=== PATIENT | male | born 1935 | race Caucasian/White ===

== ENCOUNTER 2020-12-26 11:17 | Emergency (ER) | payer OTHER, SELFPAY ==
[2020-12-26] VITALS (9 sets, daily range): BP systolic 140–165; BP diastolic 69–88; PULSE 77–93; RESP 18–22; TEMP 36.3–36.7; O2SAT 98–100
--- NOTE | ~2020-12-26 | XR_ITS ---
EXAMINATION: XR chest 2V DATE: 12/26/2020 12:37 INDICATION: Syncope. TECHNIQUE: Frontal and lateral views of the chest were obtained. COMPARISON: CT thoracic spine 02/01/2011 FINDINGS: There is elevation of left hemidiaphragm. A calcified right lung nodule is consistent with old granulomatous disease. There is mild atelectasis at the lung bases. No pleural effusion or pneumo thorax. The heart size is normal. Surgical clips overlying left upper chest. IMPRESSION: 1. Elevation of left hemidiaphragm, new from 02/01/2011. 2. Mild atelectasis at the lung bases. Reviewed, dictated and finalized at location A.
--- NOTE | ~2020-12-26 | CT_ITS ---
EXAMINATION: CT brain wo con DATE: 12/26/2020 12:57 INDICATION: Syncope. TECHNIQUE: Computed tomography (CT) of the head was performed without intravenous contrast. The mA wa s adjusted according to patient size. Iterative reconstruction technique was employed. The dose-lengt h product was 681.00 mGy-cm. COMPARISON: None FINDINGS: There are scattered areas of low attenuation in the cerebral white matter. There is no intr acranial hemorrhage, acute infarction, or abnormal intracranial mass lesion. The ventricles are smita l in size. There are likely changes of ocular lens replacement surgeries. There is mild mucosal thick ening in the paranasal sinuses. The mastoid air cells are normal. IMPRESSION: 1. Mild nonspecific cerebral white matter disease, which likely represents chronic small vessel ische rosemary disease. Reviewed, dictated and finalized at location A. IMPRESSION: 1. Mild nonspecific cerebral white matter disease, which likely represents body shop estimator leilani small vessel ischemic disease.
--- NOTE | ~2020-12-26 | CT_ITS ---
EXAMINATION: CTA chest PE protocol DATE: 12/26/2020 14:43 CDT INDICATION: Syncope. Elevated d-dimer. TECHNIQUE: Computed tomographic angiography (CTA) of the chest was performed with 100 mL Omnipaque-35 0 intravenous contrast. The dose-length product was 573.43 mGy-cm. Maximum intensity projection 3D-re constructions of the aorta and other arteries were constructed by the technologist on a separate work station. Automated exposure control and iterative reconstruction technique were employed. COMPARISON: Chest x-ray dated 12/26/2020. FINDINGS: Study is technically adequate without evidence for pulmonary embolism. No significant pleur al or pericardial effusion. Cardiomegaly. No evidence for aortic aneurysm or dissection. There is cor onary atherosclerosis. Mild mediastinal lymphadenopathy, likely reactive. Bibasilar dependent atelect asis. There is peripheral interlobular septal thickening with a few scattered subpleural nodules tyson uring 2 mm or less. No endobronchial lesions. IMPRESSION: 1. No evidence for pulmonary embolism. 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 3: Mild mediastinal lymphadenopathy, likely reactive. Reviewed, dictated and finalized at location A.
--- NOTE | 2020-12-26 12:02 | ECG_ITS ---
Measurements Intervals [place] Rate: 84 P: 35 MO: 213 QRS: -6 QRSD: 112 T: 30 QT: 371 QTc: 439 Interpretive Statements SINUS RHYTHM WITH FIRST DEGREE AV BLOCK MINIMAL Q WAVES- ANTEROLATERAL LEADS CONSIDER INFERIOR INFARCT, AGE INDETERMINATE BASELINE WANDER- AVF ABNORMAL ECG Electronically Signed On 12-26-2020 19:44:54 CDT by Zuhair Cao D.O.
--- NOTE | 2020-12-26 13:22 | ED.SYNCOPE ---
HPI - Syncope General Chief Complaint: Syncope Stated Complaint: syncope Time Seen by Provider: 12/26/20 12:11 Source: patient Mode of arrival: ambulatory Limitations: no limitations History of Present Illness HPI narrative: Patient is an 85-year-old male brought in by EMS after a syncopal episode while in latter day today. According to the patient was sitting down, and possibly passed out for a few seconds and vomited x1. states that she does not think he passed out, more of near syncope. Upon arrival patient is alert awake and oriented and has no complaints at this time. Patient states that he feels back to normal. Patient denies any headache, dizziness, speech or visual disturbance, focal weakness or numbness, chest pain, shortness of breath, abdominal pain, nausea, vomiting, fever or chills. 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 Related Data Home Medications Medication Instructions Recorded Confirmed amlodipine 12/26/20 clopidogrel 12/26/20 finasteride mg 12/26/20 fosinopril 12/26/20 hydrochlorothiazide 12/26/20 lansoprazole 12/26/20 levothyroxine 12/26/20 simvastatin mg 12/26/20 tramadol mg 12/26/20 12/26/20 Allergies Allergy/AdvReac Type Severity Reaction Status Date / Time No Known Allergies Allergy Unknown Verified 12/26/20 15:11 Review of Systems Review of Systems: All systems reviewed & are unremarkable except as noted in HPI and below Constitutional: Constitutional: Denies body ache(s), Denies chills, Denies excessive sweating, Denies fatigue, Denies fever(s), Denies headache(s), Denies lethargy, Denies malaise, Denies weakness and Denies weight loss Eyes: Eyes: Denies blurry vision, Denies change in vision and Denies loss of vision ENT: Denies dizziness, Denies ear discharge, Denies headache(s), Denies lip swelling, Denies epistaxis, Denies nasal congestion, Denies neck pain, Denies throat swelling and Denies tongue swelling Cardiovascular: Cardiovascular: Denies chest pain, Denies chest pain at rest, Denies chest pain with activity, Denies diaphoresis, Denies rapid heart rate, Denies edema, Denies irregular heart rhythm, Denies lightheadedness, Denies palpitations, Denies dyspnea and Denies dyspnea on exertion Respiratory: Respiratory: Denies chest congestion, Denies cough, Denies hemoptysis, Denies dyspnea and Denies dyspnea on exertion Gastrointestinal: Gastrointestinal: Denies abdominal pain, Denies melena, Denies hematochezia, Denies diarrhea and Denies hematemesis Musculoskeletal: Musculoskeletal: Denies abnormal gait, Denies deformity, Denies joint swelling, Denies limited range of motion, Denies neck pain and Denies numbness Neurologic: Denies Abnormal speech present, Denies abnormal gait, Denies confusion, Denies dizziness, Denies headache(s), Denies focal weakness, Denies loss of vision, Denies numbness, Denies Other visual disturbances, Denies Sensory deficit (Neuro) and Denies weakness Psychiatric: Psychiatric: Denies confusion, Denies depression, Denies auditory hallucinations, Denies homicidal ideation and Denies suicidal ideation Endocrine: Endocrine: Denies cold intolerance, Denies excessive sweating, Denies fatigue, Denies heat intolerance and Denies palpitations Hematologic/Lymphatic: Hematologic/Lymphatic: Denies easy bleeding and Denies easy bruising Allergic/Immunologic: Allergic/Immunologic: Denies lip swelling, Denies throat swelling and Denies tongue swelling PMFSH Family History Family History Sibling Patient's sister is in good health Family history of malignant neoplasm Family history of heart disease in male family member before age 55 Patient's sister is Patient's brother is Father Family history of malignant neoplasm Patient's father
[2020-12-26 13:38] LABS: Basophils Percent Auto 0.6 % (0.2-1.2); Eosinophils Absolute Auto 0.1 K/mm3 (0-0.3); Hematocrit 27.8 % (42.0-52.0); Immature Granulocyte Absolute 0.02 K/mm3 (0.00-0.031); Immature Granulocyte Percent A 0.3 % (0-0.5); Lymphocytes Absolute Auto 0.85 K/mm3 (0.9-3.2); Mean Corpuscular Hemoglobin 30.5 pg (26-34); Mean Corpuscular Volume 84.8 fl (80-100); Mean Platelet Volume 9.9 fl (7.4-10.4); Monocytes Absolute Auto 0.6 K/mm3 (0.1-0.6); Monocytes Percent Auto 8.5 % (2.6-8.5); Neutrophils Absolute Auto 5.5 K/mm3 (1.3-6.7); Neutrophils Percent Auto 77.6 % (45.5-73.1); Platelet Count Result 227 k/mm3 (150-375); Red Blood Count 3.28 M/mm3 (4.6-6.20); Red Cell Distribution Width 12.2 % (11.5-14.5); White Blood Count 7.1 K/mm3 (4.5-10.0)
[2020-12-26 13:51] LABS: Alanine Aminotransferase 15 U/L (4-50); Albumin Level 4.2 g/dL (3.5-5.1); Alkaline Phosphatase 88 U/L (38-126); Anion Gap 11 mmol/L (8-16); Aspartate Amino Transferase 21 U/L (17-59); Bilirubin,Total 0.4 mg/dL (0.2-1.3); Blood Urea Nitrogen 15 mg/dL (9-20); Calcium 9.7 mg/dL (8.4-10.2); Carbon Dioxide 27 mmol/L (22-30); Chloride 94 mmol/L (98-107); Estimated CRCL calculation 50 ml/min; Estimated Glomerular Filt Rate > 60; Glucose 139 mg/dL (75-110); Sodium 132 mmol/L (137-145)
[2020-12-26 14:00] LABS: Glucose Point of Care 129 mg/dl (65-105)
[2020-12-26 14:06] LABS: Prothrombin Time 13.3 Seconds (11.1-14.7)
[2020-12-26 14:09] LABS: Partial Thromboplastin Time 27.2 SECONDS (22.3-36.8)
[2020-12-26 14:14] LABS: D Dimer 0.86 ug/mL (<0.48)
[2020-12-26] MEDS: LACTATED RINGERS 1,000 ML 999 ML IV CONT (15:07)
== END 2020-12-26 16:55 | disposition home or self-care (01) ==
PROVIDERS: Physician Assistant; Emergency Provider Emergency Medicine; PCP Internal Medicine
DX: R55 Syncope and collapse (principal); Z95.5 Presence of coronary angioplasty implant and graft; I44.0 Atrioventricular block, first degree; R94.31 Abnormal electrocardiogram [ECG] [EKG]
CPT/HCPCS: 36415; 70450; 71046; 71275; 80053; 82948; 85025; 85380; 85610; 85730; 93005; 96360; 99284; J7120; Q9967

== ENCOUNTER 2021-05-20 17:54 | Emergency (ER) | payer OTHER, SELFPAY ==
[2021-05-20] VITALS (18 sets, daily range): BP systolic 132–193; BP diastolic 59–85; PULSE 82–97; RESP 17–23; O2SAT 98–100
--- NOTE | ~2021-05-20 | CT_ITS ---
EXAMINATION: CTA brain carotid DATE: 05/20/2021 18:13 INDICATION: Right-sided facial droop TECHNIQUE: Computed tomographic angiography (CTA) of the head was performed without and with 100 mL O mnipaque-350 intravenous contrast. CTA of the neck was performed with intravenous contrast. The dose- length product was 1169.87 mGy-cm. Maximum intensity projection and volume rendered 3D-reconstruction s were created by the technologist on a separate workstation. Automated exposure control and iterativ e reconstruction technique were employed. COMPARISON: None. FINDINGS: HEAD CTA: There is no acute intraparenchymal hemorrhage. No evidence of mass lesion. No evidence of a cute infarction. There is mild periventricular and subcortical hypodensity probably related to small vessel ischemic disease. There is mild prominence of the sulci and ventricles related to cerebral atr ophy. Intracranial calcified cerebral atherosclerosis is noted. There are no extra-axial collections. There is no mass effect or midline shift. Changes in the globes are likely from ocular lens surgery. The visualized sinuses and mastoid air cells are well aerated. There is no significant stenosis of the basilar artery or posterior cerebral arteries. There is no si gnificant stenosis of the intracranial internal carotid arteries or the anterior or middle cerebral a rteries. The anterior communicating artery and posterior communicating arteries are normal. There is no aneurysm. NECK CTA: The thyroid gland is unremarkable. The submandibular and parotid glands are symmetric. Ther e is no lymphadenopathy. There are no masses identified. The airway is unremarkable. 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 The superior mediastinum is unremarkable. There is 55% stenosis of the proximal right internal carotid artery relative to normal distal artery lumen diameter (NASCET criteria). A stent is present in the left internal carotid artery. 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 IMPRESSION: 1. No acute intracranial abnormality. Normal head CTA. 2. 55% stenosis of the proximal right internal carotid artery relative to normal distal artery lumen diameter (NASCET criteria). 3. 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 Reviewed, dictated and finalized at location A. IMPRESSION: 1. No acute intracranial abnormality. Normal head CTA. 2. 55% stenosis of the proximal right internal carotid artery relative to smita l distal artery lumen diameter (NASCET criteria). 3. 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
--- NOTE | ~2021-05-20 | CT_ITS ---
EXAMINATION: CT brain wo con INDICATION: Right-sided facial droop COMPARISON: 12/26/2020 TECHNIQUE: Standard unenhanced head CT. The dose-length product (DLP) was 605.33 mGy-cm. The mA was a djusted according to patient size. Iterative reconstruction technique was employed. FINDINGS: There is no acute intraparenchymal hemorrhage. No evidence of mass lesion. No evidence of a cute infarction. There is mild periventricular and subcortical hypodensity probably related to small vessel ischemic disease. There is mild prominence of the sulci and ventricles related to cerebral atr ophy. Intracranial calcified cerebral atherosclerosis is noted. There are no extra-axial collections. There is no mass effect or midline shift. Changes in the globes are likely from ocular lens surgery. The visualized sinuses and mastoid air cells are well aerated. IMPRESSION: 1. No acute intracranial abnormality. 2. Age related findings. As per stroke protocol, I called these results to the Emergency Department, and discussed with Dr. Joleen Ugarte MD at 1838 hours on 05/20/2021. Reviewed, dictated and finalized at location A. IMPRESSION: 1. No acute intracranial abnormality. 2. Age related findings. As per stroke protocol, I called these results to the Emergency Department, and discussed with Dr. Levy Ugarte MD at 1838 hours on 05/20/2021.
--- NOTE | ~2021-05-20 | XR_ITS ---
EXAMINATION: XR chest 1V portable INDICATION: Facial droop, stroke protocol TECHNIQUE: Portable AP chest at 1823 hours COMPARISON: 12/26/2020 FINDINGS: There are patchy opacities of the lungs. No pleural effusion or pneumothorax is identified. The cardiomediastinal silhouette is normal. Surgical clips are noted in the left neck. IMPRESSION: 1. Patchy bilateral opacities, consistent with atelectasis versus pneumonia. Reviewed, dictated and finalized at location A.
--- NOTE | 2021-05-20 17:57 | ECG_ITS ---
Measurements Intervals [place] Rate: 93 P: 56 OR: 235 QRS: -16 QRSD: 97 T: 49 QT: 358 QTc: 447 Interpretive Statements SINUS RHYTHM WITH FIRST DEGREE AV BLOCK INCOMPLETE RIGHT BUNDLE BRANCH BLOCK BASELINE ARTIFACT- I, III, AVR, AVL, AVF ABNORMAL ECG Electronically Signed On 05-20-2021 20:15:36 CDT by Zuhair Cao D.O.
--- NOTE | 2021-05-20 18:21 | ED.NEUROSD ---
HPI - Neuro Symptoms/Deficit General Chief Complaint: Suspected CVA Stated Complaint: POSS CVA, FACIAL DROOP Time Seen by Provider: 05/20/21 17:56 Source: patient Mode of arrival: ambulatory Limitations: no limitations History of Present Illness HPI Narrative: Patient is an 85-year-old male brought in by EMS complaining of facial droop accompanied by slurred speech started prior to arrival and now resolved. According to the symptoms lasted for approximately 30 minutes. Patient on exam has no complaints at this time. Patient denies any headache, dizziness, focal weakness or numbness, or unsteady gait. Patient denies any chest pain, shortness of breath, pain, nausea, vomiting, fever or chills. Related Data Home Medications Medication Instructions Recorded Confirmed amlodipine 12/26/20 clopidogrel 12/26/20 finasteride mg 12/26/20 fosinopril 12/26/20 hydrochlorothiazide 12/26/20 lansoprazole 12/26/20 levothyroxine 12/26/20 simvastatin mg 12/26/20 tramadol mg 12/26/20 12/26/20 Allergies Allergy/AdvReac Type Severity Reaction Status Date / Time No Known Allergies Allergy Unknown Verified 12/26/20 15:11 Review of Systems Review of Systems: All systems reviewed & are unremarkable except as noted in HPI and below Constitutional: Constitutional: Denies body ache(s), Denies chills, Denies excessive sweating, Denies fatigue, Denies fever(s), Denies headache(s), Denies lethargy, Denies malaise, Denies weakness and Denies weight loss Eyes: Eyes: Denies blurry vision, Denies change in vision and Denies loss of vision ENT: Denies dizziness, Denies ear discharge, Denies headache(s), Denies lip swelling, Denies epistaxis, Denies nasal congestion, Denies neck pain, Denies throat swelling and Denies tongue swelling Cardiovascular: Cardiovascular: Denies chest pain, Denies chest pain at rest, Denies chest pain with activity, Denies diaphoresis, Denies rapid heart rate, Denies edema, Denies irregular heart rhythm, Denies lightheadedness, Denies palpitations, Denies dyspnea and Denies dyspnea on exertion Respiratory: Respiratory: Denies chest congestion, Denies cough, Denies hemoptysis, Denies dyspnea and Denies dyspnea on exertion Gastrointestinal: Gastrointestinal: Denies abdominal pain, Denies melena, Denies hematochezia, Denies diarrhea, Denies nausea, Denies vomiting and Denies hematemesis Musculoskeletal: Musculoskeletal: Denies abnormal gait, Denies deformity, Denies joint swelling, Denies limited range of motion, Denies neck pain and Denies numbness Neurologic: Denies abnormal gait, Denies confusion, Denies dizziness, Denies headache(s), Denies focal weakness, Denies loss of vision, Denies numbness, Denies Other visual disturbances, Denies Sensory deficit (Neuro) and Denies weakness Psychiatric: Psychiatric: Denies confusion, Denies depression, Denies auditory hallucinations, Denies homicidal ideation and Denies suicidal ideation Endocrine: Endocrine: Denies cold intolerance, Denies excessive sweating, Denies fatigue, Denies heat intolerance and Denies palpitations Hematologic/Lymphatic: Hematologic/Lymphatic: Denies easy bleeding and Denies easy bruising Allergic/Immunologic: Allergic/Immunologic: Denies lip swelling, Denies throat swelling and Denies tongue swelling PMFSH Family History Family History Sibling Patient's sister is in good health Family history of malignant neoplasm Family history of heart disease in male family member before age 55 Patient's sister is Patient's brother is Father Family history of malignant neoplasm Patient's father is Mother Patient's mother is Other Diabetes mellitus Social History Social History Smoking status: Never smoker Alcohol intake: never Comments Past medical history: C
[2021-05-20 18:48] LABS: Basophils Percent Auto 0.3 % (0.2-1.2); Eosinophils Absolute Auto 0.1 K/mm3 (0-0.3); Eosinophils Percent Auto 1.3 % (0-4.4); Hematocrit 28.4 % (42.0-52.0); Hemoglobin 10.2 g/dL (14.0-18.0); Immature Granulocyte Absolute 0.05 K/mm3 (0.00-0.031); Immature Granulocyte Percent A 0.6 % (0-0.5); Lymphocytes Absolute Auto 1.27 K/mm3 (0.9-3.2); Lymphocytes Percent Auto 14.7 % (18.3-44.2); Mean Corpuscular HGB Conc 35.9 g/dl (32-36); Mean Corpuscular Hemoglobin 31.7 pg (26-34); Mean Corpuscular Volume 88.2 fl (80-100); Mean Platelet Volume 10.2 fl (7.4-10.4); Monocytes Absolute Auto 0.6 K/mm3 (0.1-0.6); Monocytes Percent Auto 7.4 % (2.6-8.5); Neutrophils Absolute Auto 6.5 K/mm3 (1.3-6.7); Neutrophils Percent Auto 75.7 % (45.5-73.1); Platelet Count Result 220 k/mm3 (150-375); Red Blood Count 3.22 M/mm3 (4.6-6.20); Red Cell Distribution Width 12.3 % (11.5-14.5); White Blood Count 8.6 K/mm3 (4.5-10.0)
[2021-05-20] MEDS: LACTATED RINGERS 1,000 ML 999 ML IV CONT (18:50)
[2021-05-20 18:51] LABS: Prothrombin Time 13.2 Seconds (11.1-14.7)
[2021-05-20 18:52] LABS: Partial Thromboplastin Time 28.1 SECONDS (22.3-36.8)
[2021-05-20 18:54] LABS: Anion Gap 12 mmol/L (8-16); Blood Urea Nitrogen 26 mg/dL (9-20); Calcium 9.6 mg/dL (8.4-10.2); Carbon Dioxide 24 mmol/L (22-30); Chloride 95 mmol/L (98-107); Estimated Glomerular Filt Rate 44; Glucose 91 mg/dL (65-110); Potassium 4.2 mmol/L (3.4-5.0); Sodium 131 mmol/L (137-145)
[2021-05-20 19:08] LABS: Troponin I 0.012 ng/mL (0.000-0.034)
[2021-05-20 19:22] LABS: Glucose Point of Care 85 mg/dl (65-105)
[2021-05-20 19:22] LABS: Glucose Point of Care 76 mg/dl (65-105)
--- NOTE | 2021-05-20 21:35 | PC.NURSE ---
[facility] transfer center called in with bed assignment, room 280. Pt and notified. Pending ETA for EMS is midnight. Report given to Shantal at [facility].
[2021-05-20] MEDS: HEPARIN SOD/D5W 100 UNITS/ML 25,000 UNITS/250 ML BAG 10 UNITS IV CONT (22:18)
[2021-05-20] MEDS: HEPARIN SODIUM 5,000 UNITS/ML VIAL 4000 UNITS IV PUSH (22:19)
[2021-05-21 00:02] VITALS: BP 147/75; PULSE 90; RESP 17; O2SAT 98
[2021-05-21 02:21] VITALS: BP 155/75; PULSE 87; RESP 20; O2SAT 99
[2021-05-21 03:00] VITALS: BP 160/87; PULSE 87; RESP 18; O2SAT 100
== END 2021-05-21 03:04 | disposition short-term general hospital (02) ==
PROVIDERS: Emergency Provider Emergency Medicine; PCP Internal Medicine
DX: I65.21 Occlusion and stenosis of right carotid artery (principal); G45.9 Transient cerebral ischemic attack, unspecified; Z20.822 Contact with and (suspected) exposure to COVID-19; E78.5 Hyperlipidemia, unspecified; I10 Essential (primary) hypertension; E11.9 Type 2 diabetes mellitus without complications; Z95.5 Presence of coronary angioplasty implant and graft; I44.0 Atrioventricular block, first degree; I45.10 Unspecified right bundle-branch block
CPT/HCPCS: 36415; 70450; 70496; 70498; 71045; 80048; 82948; 84484; 85025; 85610; 85730; 87426; 93005; 96360; 99285; C9803; J1644; J7120; Q9967